=== PATIENT | male | born 1950 | race Caucasian/White ===

== ENCOUNTER → 2021-04-27 | Outpatient (CLI) | payer MEDICARE ==
--- NOTE | 2021-04-27 09:45 | RAD ---
EXAM: Sonographic guided thyroid fine-needle aspiration. HISTORY: 70-year-old male presents for fine-needle aspiration of a nodule within the left thyroid lob e demonstrated on a sonogram performed at an outside facility on 04/13/2021. TECHNIQUE: The risks of the procedure discussed with the patient and written and verbal chest was obt ained. A timeout was performed. Sonographic imaging of the left thyroid lobe was performed and the hy poechoic nodule concern within the inferior deep left thyroid lobe was identified. Fine-needle aspira tion is technically challenging due to nodule location, adjacent vessels and respiratory motion. The skin overlying this location was sterilely prepped, draped and infiltrated with 1 percent lidocaine. 4 passes were made into the nodule with 25-gauge needles and 2 separate Rotex needles were advanced i nto the lesion with sonographic guidance. There are compression was maintained until hemostasis was a chieved. A sterile measures placed. The patient tolerated the procedure without complication. IMPRESSION: Sonographic guided fine-needle aspiration of a nodule within the inferior deep left thyro id lobe using 4 25-gauge needles and 2 Rotex needles. The procedure was particularly technically chal lenging due to nodule location, adjacent vessels and respiratory motion. An addendum to this report w ill be submitted when pathology results are available. Electronically signed by: Corinne Vanegas MD (04/27/2021 9:42 AM) [id number]
== END | disposition home or self-care (01) ==
LOC: US 08:00
PROVIDERS: ATTEND Surgery
DX: E04.1 Nontoxic single thyroid nodule (principal)
CPT/HCPCS: 10005; C1819